=== PATIENT | female | born 1985 | race Caucasian/White ===

== ENCOUNTER → 2025-03-14 09:29 | Outpatient (CLI) | payer OTHER, SELFPAY ==
--- NOTE | 2025-03-14 09:31 | DI.RAD.S_ITS ---
PROCEDURE: XR LUMBAR SPINE 2-3V INDICATIONS: Mid back pain TECHNIQUE: 3 views of the lumbar spine were acquired. COMPARISON: None. FINDINGS: Bones: 5 [id number] vertebrae are present. There is normal bony alignment. No vertebral body compression fractures. No suspicious bony lesions. L5 limbus vertebrae. Mild to moderate, multilevel degenerative disc disease and lower lumbar facet arthrosis. Soft tissues: Overlying bowel gas pattern is normal. No suspicious soft tissue calcifications. IMPRESSION: Mild to moderate, multilevel degenerative disc disease and lower lumbar facet arthrosis. Dictated by: Stevie Lau M.D. on 03/14/2025 at 11:35 Approved by: Stevie Lau M.D. on 03/14/2025 at 11:35
--- NOTE | 2025-03-14 09:31 | DI.RAD.S_ITS ---
PROCEDURE: XR THORACIC SPINE 2V INDICATIONS: Mid back pain TECHNIQUE: 2 views of the thoracic spine were acquired. COMPARISON: None. FINDINGS: Bones: No fractures or dislocations. No suspicious bony lesions. 12 pairs of ribs are noted, and appear intact where visualized. Soft tissues: No paravertebral stripe thickening. IMPRESSION: No acute bony abnormality. Dictated by: Stevie Lau M.D. on 03/14/2025 at 11:36 Approved by: Stevie Lau M.D. on 03/14/2025 at 11:36
== END ==
PROVIDERS: Referring Provider Physician Assistant Medical; Visit Provider Physician Assistant Medical
DX: M47.816 Spondylosis without myelopathy or radiculopathy, lumbar region (principal); M51.360 Other intervertebral disc degeneration, lumbar region with discogenic back pain only; M54.6 Pain in thoracic spine
CPT/HCPCS: 72070; 72100